=== PATIENT | female | born 1985 | race American Indian/Alaskan Native ===

== ENCOUNTER 2017-01-24 10:24 | Emergency (ER) | payer SELFPAY ==
[2017-01-24 10:46] VITALS: BP 111/74
--- NOTE | 2017-01-24 10:46 | Emergency Department Report ---
Chief Complaint: Extremity Injury, Lower Stated Complaint: LEFT ANKLE PAIN Time Seen by Provider: 01/24/17 10:44 - HPI History of Present Illness: PT states she twisted her ankle last night. PT States she can not walk today - ROS Review of Systems: + gait changes + ankle pain - unable to localize lmp 1 week ago - Exam Physical Exam: Limited ROM to L ankle. pt evaluated from wheelchair. MSE screening note: Focused history and physical exam performed. Due to findings the following was ordered: xr ED Disposition for MSE Condition: Stable
--- NOTE | 2017-01-24 11:17 | XRay Report ---
Left ankle: Trauma, pain. There is a spiral fracture through the distal shaft of the fibula with mild separation but good alignment. A small displaced fragment noted posteriorly. The tibia and talus appear uninvolved. There is associated swelling predominantly involving the distal leg and lateral ankle. Impressions: Fibula fracture.
[2017-01-24] MEDS ORDERED: TORADOL IM ONE (12:20)
--- NOTE | 2017-01-24 23:18 | Emergency Department Report ---
Entered by LUIS MARTINES, acting as scribe for DANNIELLE HARRELL PAC. ED Lower Extremity HPI - General Chief Complaint: Extremity Injury, Lower Stated Complaint: LEFT ANKLE PAIN Time Seen by Provider: 01/24/17 10:44 Source: patient Mode of arrival: Wheelchair Limitations: No Limitations - History of Present Illness Initial Comments: 31 y/o female with no significant PMHx presents to the ED c/o left ankle pain that began last night. Patient states she stepped off the porch wrong, fell, and subsequently injured her left ankle. Rates pain a 10/10 in severity, which she describes as aching in quality. Aggravated with movement, palpation, and weight bearing, and alleviated with immobilization. Associated symptom includes left ankle swelling, but she denies any head injury/trauma, LOC, numbness, tingling, and any other injuries. LMP 01/17/2017. Denies any possibility that she is . Patient denies taking any new or recent medications. NKDA. FISHMAN Complaint: foot injury -: Last night Injury: Ankle: Left Type of Injury: unknown Place: home Severity: severe Severity scale (0 -10): 10 Improves With: immobilization Worsens With: weight bearing, movement, palpation Context: fall, other (stepped off porch wrong) Associated Symptoms: swelling (LT ankle), able to partially bear weight, ambulatory. denies: snap/pop sensation, numbness, tingling Treatments Prior to Arrival: cold therapy - Related Data Previous Rx's Medication Instructions Recorded Last Taken Type Metoclopramide [Reglan] 10 mg PO Q6H PRN #20 tablet 10/30/13 Unknown Rx Nitrofurantoin Coke/M-Cryst 100 mg PO Q12HR #10 capsule 10/30/13 Unknown Rx [Macrobid] Vit-Fe Fumar-FA [ 1 each PO ONCE #30 tablet 10/30/13 Unknown Rx Vitamin] metroNIDAZOLE [Flagyl] 500 mg PO BID #14 tablet 10/30/13 Unknown Rx Ferrous Sulfate [Feosol 325 MG tab] 325 mg PO BID #60 tablet 03/06/16 Unknown Rx Ibuprofen [Motrin 600 MG tab] 600 mg PO Q6HR #30 tablet 03/06/16 Unknown Rx oxyCODONE /ACETAMINOPHEN [Percocet 2 tab PO Q4H PRN #30 tablet 03/06/16 Unknown Rx 5/325 mg] traMADol [Ultram] 50 mg PO Q6HR PRN #24 tablet 01/24/17 Unknown Rx Allergies Allergy/AdvReac Type Severity Reaction Status Date / Time No Known Allergies Allergy Verified 01/24/17 10:43 ED Review of Systems Comment: All other systems reviewed and negative Constitutional: denies: chills, fever Eyes: denies: eye pain, eye discharge, vision change ENT: denies: ear pain, throat pain Respiratory: denies: cough, shortness of breath, wheezing Cardiovascular: denies: chest pain, palpitations Endocrine: no symptoms reported Gastrointestinal: denies: abdominal pain, nausea, vomiting, diarrhea Genitourinary: denies: urgency, dysuria, discharge Musculoskeletal: joint swelling, arthralgia (LT ankle pain). denies: back pain , myalgia Skin: denies: rash, lesions Neurological: denies: headache, weakness, numbness, paresthesias Psychiatric: denies: anxiety, depression Hematological/Lymphatic: denies: easy bleeding, easy bruising ED Past Medical Hx - Past Medical History Previous Medical History?: No Hx Congestive Heart Failure: No Hx Diabetes: No Hx Asthma: No Hx COPD: No - Surgical History Past Surgical History?: No - Family History Family history: no significant - Social History Smoking Status: Never Smoker Substance Use Type: Alcohol - Medications Home Medications: Home Medications Medication Instructions Recorded Confirmed Last Taken Type Metoclopramide [Reglan] 10 mg PO Q6H PRN #20 tablet 10/30/13 Unknown Rx Nitrofurantoin Coke/M-Cryst 100 mg PO Q12HR #10 capsule 10/30/13 Unknown Rx [Macrobid] Vit-Fe Fumar-FA [ 1 each PO ONCE #30 tablet 10/30/13 Unknown Rx Vitamin] metroNIDAZOLE [Flagyl] 500 mg PO BID #14 tablet 10/30/13 Unknown Rx Ferrous Sulfate [Feosol 325 MG tab] 325 mg PO BID #60 tablet 03/06/16 Unknown Rx Ibuprofen [Motrin 600 MG tab] 600 mg PO Q6HR #30 tablet 03/06/16 Unknown Rx oxyCODONE /ACETAMINOPHEN [Percocet 2 tab PO Q4H PRN #30 tablet 03/06/16 Unknown Rx 5/325 mg] traMADol [Ultram] 50 mg PO Q6HR PRN #24 tablet 01/24/17 Unknown Rx ED Physical Exam - General Limitations: No Limitations General appearance: alert, in no apparent distress - Head Head exam: Present: atraumatic, normocephalic - Eye Eye exam: Present: normal appearance, PERRL, EOMI Pupils: Present: normal accommodation - ENT ENT exam: Present: normal exam, mucous membranes moist, normal external ear exam - Neck Neck exam: Present: normal inspection, full ROM. Absent: tenderness, meningismus, lymphadenopathy - Respiratory Respiratory exam: Present: normal lung sounds bilaterally. Absent: respiratory distress, wheezes, rales, rhonchi, stridor, accessory muscle use, decreased breath sounds - Cardiovascular Cardiovascular Exam: Present: regular rate, normal rhythm, normal heart sounds. Absent: systolic murmur, diastolic murmur - GI/Abdominal GI/Abdominal exam: Present: soft, normal bowel sounds. Absent: distended - Extremities Exam Extremities exam: Present: full ROM (limited flexion/extension due to LT ankle pain), tenderness (LT ankle), normal capillary refill, joint swelling (LT ankle) . Absent: normal inspection, pedal edema, calf tenderness - Expanded Lower Extremity Exam Left Hip exam: Present: normal inspection, full ROM Upper Leg exam: Present: normal inspection, full ROM Knee exam: Present: normal inspection, full ROM, full knee extension. Absent: tenderness, swelling, abrasion, laceration, ecchymosis, deformity, crepidus, dislocation, erythema, effusion, pain w/ pronation/supination, posterior draw sign, pain/laxity with valgus, pain/laxity with varus Lower Leg exam: Present: normal inspection, full ROM. Absent: tenderness, swelling, abrasion, laceration, ecchymosis, deformity, crepidus, dislocation, erythema, palpable cord, Vitaliy's sign Ankle exam: Present: full ROM (limited flexion/extension due to LT ankle pain, pulses intact, sensation was intact, hemodynamically and neurovascularly intact) , tenderness (lateral mallelous on LT ankle), swelling (LT ankle). Absent: normal inspection, abrasion, laceration, ecchymosis, deformity, crepidus, dislocation, erythema, anterior draw sign Foot/Toe exam: Present: normal inspection, full ROM. Absent: tenderness, swelling, abrasion, laceration, ecchymosis, deformity, crepidus, dislocation, erythema, amputation, puncture wound, foreign body, calcaneal tenderness, tenderness at base of 5th metatarsal, nail avulsion, subungual hematoma Neuro vascular tendon exam: Present: no vascular compromise. Absent: pulse deficit, abnormal cap refill, motor deficit, sensory deficit, tendon deficit, extremity cold to touch, pallor, abnormal 2-point discrimination, decreased fine /light touch, foot drop, peroneal nerve deficit, significant pain with passive ROM of distal joint Gait: Positive: observed and limited by pain - Back Exam Back exam: Present: normal inspection, full ROM. Absent: tenderness - Neurological Exam Neurological exam: Present: alert, oriented X3, normal gait (limited due to LT ankle pain) - Psychiatric Psychiatric exam: Present: normal affect, normal mood - Skin Skin exam: Present: warm, dry, intact. Absent: rash ED Course Vital Signs 01/24/17 10:43 Temperature 98.6 F Pulse Rate 86 Respiratory 18 Rate Blood Pressure 111/74 O2 Sat by Pulse 98 Oximetry ED Lower Extremity MDM - Medical Decision Making pt presented with left ankle injury s/p tripping on a step last night. Pt's urine HCG was conducted in-house and was negative, LMP was last week. Pt was given toradol 60 mg in house that helped with the pain. Posterior fibular long splint was provided in the ER along with crutches. Pt was hemodynmaically and neurovascualrly stable in the ER. She will be d/c with non-weight bearing orders, crutches, RICE therapy, and referral to Ortho within 5-7 days. Ultram provided q 6 hours for pain- side effects explained to patient. ED Disposition Clinical Impression: Left fibular fracture Disposition: DC-01 TO HOME OR SELFCARE Is pt being admited?: No Does the pt Need Aspirin: No Condition: Stable Instructions: Tramadol (By mouth), Leg Fracture (ED), RICE Therapy (ED) Additional Instructions: Pt instructed to be non-weight bearing, crutches and splint provided in house. Encouraged to take pain medication as instructed, Rest, ice, compress, and elevate. Please be advised that pain medication may cause drowsiness, do not drive or operate heavy machinery. Please follow-up with Ortho within 5-7 days. Educated to Return to ED if any acute worsening symptoms. Prescriptions: traMADol [Ultram] 50 mg PO Q6HR PRN #24 tablet PRN Reason: Pain Referrals: PRIMARY CARE, [Primary Care Provider] - 3-5 Days FRANCISCO JAVIER DOMINGUEZ MD [Staff Physician] - 3-5 Days LEEANNA HORTON DPM [Staff Physician] - 3-5 Days Forms: Work/School Release Form(ED) Time of Disposition: 12:45 This documentation as recorded by the BOBBI harrington JASMINE,accurately reflects the service I personally performed and the decisions made by JULIO CESAR lawler KRISHNA S., PAC.
== END 2017-01-24 13:57 | disposition home or self-care (01) ==
LOC: ED 10:24
DX: S82.832A Other fracture of upper and lower end of left fibula, initial encounter for closed fracture (principal); W01.0XXA Fall on same level from slipping, tripping and stumbling without subsequent striking against object, initial encounter; Y93.9 Activity, unspecified; Y92.9 Unspecified place or not applicable; Y99.9 Unspecified external cause status
CPT/HCPCS: 29505; 73610; 81025; 96372; 99284; J1885

== ENCOUNTER 2019-08-16 07:35 | Emergency (ER) | payer SELFPAY ==
--- NOTE | 2019-08-16 08:05 | Emergency Department Report ---
HPI - General Chief Complaint: Upper Respiratory Infection Time Seen by Provider: 08/16/19 07:54 - HPI HPI: 33-year-old -[place] female presents to the emergency department with a complaint of a 2-day history of a productive cough and then the patient woke up today with some shortness of breath. She denies any fever, lower extremity swelling, chest pain, palpitations. She has been taking some Mucinex and ibuprofen for symptoms without much relief. No recent travel or sick contacts at home. No known exposure to anyone with the novel coronavirus. The patient just had a stillbirth at 5 months gestation 2 weeks ago at [facility]. She has a past medical history of depression. She denies any tobacco or illicit drug use. ED Past Medical Hx - Past Medical History Previous Medical History?: No Hx Congestive Heart Failure: No Hx Diabetes: No Hx Asthma: No Hx COPD: No Additional medical history: induced labor stillbirth July 28, 2019 - Surgical History Past Surgical History?: No - Social History Smoking Status: Never Smoker - Medications Home Medications: Home Medications Medication Instructions Recorded Confirmed Last Taken Type Metoclopramide [Reglan] 10 mg PO Q6H PRN #20 tablet 10/30/13 Unknown Rx Nitrofurantoin Prentiss/M-Cryst 100 mg PO Q12HR #10 capsule 10/30/13 Unknown Rx [Macrobid] Vit-Fe Fumar-FA [ 1 each PO ONCE #30 tablet 10/30/13 Unknown Rx Vitamin] metroNIDAZOLE [Flagyl] 500 mg PO BID #14 tablet 10/30/13 Unknown Rx Ferrous Sulfate [Feosol 325 MG tab] 325 mg PO BID #60 tablet 03/06/16 Unknown Rx Ibuprofen [Motrin 600 MG tab] 600 mg PO Q6HR #30 tablet 03/06/16 Unknown Rx oxyCODONE /ACETAMINOPHEN [Percocet 2 tab PO Q4H PRN #30 tablet 03/06/16 Unknown Rx 5/325 mg] traMADoL [Ultram] 50 mg PO Q6HR PRN #24 tablet 01/24/17 Unknown Rx Albuterol INH(or & Nicu Only) 2 puff IH QID PRN #8.5 gram 08/16/19 Unknown Rx [ProAir HFA Inhaler] ED Review of Systems ROS: Stated complaint: SOB Other details as noted in HPI Comment: All other systems reviewed and negative Constitutional: denies: chills, fever Eyes: denies: eye pain, vision change ENT: denies: ear pain, throat pain Respiratory: cough, shortness of breath Cardiovascular: denies: chest pain, palpitations, edema Gastrointestinal: denies: abdominal pain, vomiting Genitourinary: denies: dysuria, discharge Musculoskeletal: denies: back pain, arthralgia Skin: denies: rash, lesions Neurological: denies: headache, weakness Physical Exam - Physical Exam Vital Signs: Vital Signs 08/16/19 07:50 Temperature 98.7 F Pulse Rate 64 Respiratory 16 Rate Blood Pressure 135/91 O2 Sat by Pulse 100 Oximetry Physical Exam: GENERAL: The patient is well-developed well-nourished. HENT: Normocephalic. Atraumatic. Patient has moist mucous membranes. EYES: Extraocular motions are intact. NECK: Supple. Trachea is midline. CHEST/LUNGS: Clear to auscultation. No cough heard during examination. Mild tachypnea but no accessory muscle use. There is no respiratory distress noted. HEART/CARDIOVASCULAR: Regular. There is no tachycardia. ABDOMEN: Abdomen is soft, nontender. Patient has normal bowel sounds. There is no abdominal distention. SKIN: Skin is warm and dry. NEURO: The patient is awake, alert, and oriented. The patient is cooperative. Normal speech. MUSCULOSKELETAL: There is no tenderness or deformity. There is no evidence of acute injury. ED Course Vital Signs 08/16/19 07:50 Temperature 98.7 F Pulse Rate 64 Respiratory 16 Rate Blood Pressure 135/91 O2 Sat by Pulse 100 Oximetry ED Medical Decision Making - Lab Data Result diagrams: 08/16/19 08:07 08/16/19 08:07 - EKG Data -: EKG Interpreted by Me EKG shows normal: sinus rhythm, axis, intervals, QRS complexes (LVH), ST-T waves Rate: normal - EKG Data When compared to previous EKG there are: previous EKG unavailable Interpretation: LVH - Radiology Data Radiology results: image reviewed interpreted by me: Chest x-ray does not show any acute process. There are no pleural effusions, obvious pneumonia and there is no pneumothorax. - Medical Decision Making This patient presents to the emergency department with the complaint of a 2-day history of a cough and then woke up today with some shortness of breath. She has some mild tachypnea but no accessory muscle use, no conversational dyspnea, and does not appear in any respiratory distress. Her vital signs been stable throughout her ED course including being afebrile and no hypoxia. Chest x-ray does not show any pneumonia, pleural effusions, pneumothorax, focal consolidation, or any other acute process. EKG did not show any signs of ST elevation MS. Patient's labs have been unremarkable including CBC, metabolic panel, d-dimer level and BNP. She will be discharged home with an albuterol inhaler and instructed to follow-up with primary care in the next few days. However she has also been instructed to return to the emergency department immediately with any worsening of her symptoms or with any acute distress. - Differential Diagnosis Bronchitis, viral URI, PE, CHF, pneumonia Critical Care Time: No Critical care attestation.: If time is entered above; I have spent that time in minutes in the direct care of this critically ill patient, excluding procedure time. ED Disposition Clinical Impression: Bronchitis Disposition: DC-01 TO HOME OR SELFCARE Is pt being admited?: No Condition: Stable Instructions: Acute Bronchitis (ED) Additional Instructions: Please follow-up with a primary care physician in the next few days. Return to the emergency department with any worsening of your symptoms or any acute distress. Prescriptions: Albuterol INH(or & Nicu Only) [ProAir HFA Inhaler] 2 puff IH QID PRN #8.5 gram PRN Reason: Shortness Of Breath Referrals: JHONATHAN WOODARD MD [Staff Physician] - 2-3 Days [facility] [Provider Group] - 2-3 Days Time of Disposition: 11:05
[2019-08-16 08:18] LABS: Basophils # (Auto) 0.1 K/mm3 (0.0-0.1); Basophils % (Auto) 1.9 % (0.0-1.8); Eosinophils # (Auto) 0.1 K/mm3 (0.0-0.4); Eosinophils % (Auto) 2.6 % (0.0-4.3); Hematocrit 29.9 % (30.3-42.9); Hemoglobin 10.2 gm/dl (10.1-14.3); Lymphocytes % (Auto) 34.6 % (13.4-35.0); Mean Corpuscular HGB Conc 34 % (30-34); Mean Corpuscular Volume 90 fl (79-97); Monocytes # (Auto) 0.3 K/mm3 (0.0-0.8); Monocytes % (Auto) 8.7 % (0.0-7.3); Platelet Count 258 K/mm3 (140-440); Red Blood Count 3.33 M/mm3 (3.65-5.03); Red Cell Distribution Width 14.3 % (13.2-15.2)
--- NOTE | 2019-08-16 08:35 | XRay Report ---
CHEST 1 VIEW INDICATION: SOB. COMPARISON: None available. FINDINGS: Support devices: None. Heart: Within normal limits. Pulmonary vasculature: Normal. Lungs/Pleura: Lungs are normally expanded and clear. Additional findings: None. IMPRESSION: 1. Normal chest. Signer Name: Mark Rose MD Signed: 08/16/2019 8:30 AM Workstation Name: [id number]
[2019-08-16 08:37] LABS: BUN/Creatinine Ratio 10; Blood Urea Nitrogen 8 mg/dL (7-17); Calcium 8.7 mg/dL (8.4-10.2); Hemolysis Index 2
[2019-08-16] MEDS ORDERED: IPRATROPIUM/ALBUTEROL SULFATE 3 ML AMPUL.NEB IH ONE (08:54)
[2019-08-16 11:49] VITALS: BP 143/89
== END 2019-08-16 11:48 | disposition home or self-care (01) ==
LOC: ED 07:35
DX: J40 Bronchitis, not specified as acute or chronic (principal); Z79.899 Other long term (current) drug therapy
CPT/HCPCS: 36415; 71045; 80048; 83880; 85025; 85379; 93005; 93010; 94640; 94644